=== PATIENT | male | born 1980 | race Caucasian/White ===

== ENCOUNTER 2020-03-03 04:35 | Emergency (ER) | payer BC, OTHER ==
[2020-03-03] MEDS ORDERED: Ketorolac 30 MG/ML SDV IM ONE (04:53)
[2020-03-03] MEDS ORDERED: Ketorolac 30 MG/ML SDV IVPUSH ONE (04:55)
--- NOTE | 2020-03-03 06:16 | CR ---
INDICATION: Chest pain. COMPARISON: Two-view chest March 01, 2019. TECHNIQUE: Portable AP chest. FINDINGS: Normal size cardiac silhouette. Clear lung payan with no evidence of acute pulmonic infiltrates or CHF. No pneumothorax or pleural effusion. No interval change. IMPRESSION: Negative portable AP chest. Dictated by Niranjan Reyes MD @ Mar 03 2020 6:12AM Signed by Dr. Niranjan Reyes @ Mar 03 2020 6:14AM
--- NOTE | 2020-03-03 06:23 | EDM.PDOC ---
ED HPI GENERAL MEDICAL PROBLEM - General Chief Complaint: General Stated Complaint: RT SIDE PAIN Time Seen by Provider: 03/03/20 04:42 Source of Information: Reports: Patient History Limitations: Reports: No Limitations - History of Present Illness Onset: Today, Sudden Duration: Hour(s):, Intermittent Location: Reports: Chest Quality: Reports: Sharp Severity: Moderate Improves with: Reports: None Worsens with: Reports: None Context: Reports: Other (Pain after he coughed) Associated Symptoms: Reports: No Other Symptoms, Chest Pain, Cough R side Pain Score (Numeric/FACES): 9 - Related Data Allergies Allergy/AdvReac Type Severity Reaction Status Date / Time No Known Allergies Allergy Verified 03/03/20 04:50 Home Meds: Home Meds . [No Known Home Meds] 03/03/20 [History] Past Medical History - Past Surgical History Musculoskeletal Surgical History: Reports: Other (See Below) Other Musculoskeletal Surgeries/Procedures:: knee surgery, L knee Social & Family History - Tobacco Use Smoking Status *Q: Former Smoker Used Tobacco, but Quit: Yes Month/Year Tobacco Last Used: 2019 - Recreational Drug Use Recreational Drug Use: No ED ROS GENERAL - Review of Systems Review Of Systems: See Below Constitutional: Reports: No Symptoms HEENT: Reports: No Symptoms Respiratory: Reports: Pleuritic Chest Pain, Cough Cardiovascular: Reports: No Symptoms Endocrine: Reports: No Symptoms GI/Abdominal: Reports: No Symptoms : Reports: No Symptoms Musculoskeletal: Reports: No Symptoms Skin: Reports: No Symptoms Neurological: Reports: No Symptoms Psychiatric: Reports: No Symptoms Hematologic/Lymphatic: Reports: No Symptoms Immunologic: Reports: No Symptoms ED EXAM, GENERAL - Physical Exam Exam: See Below Exam Limited By: No Limitations General Appearance: Alert, WD/WN, No Apparent Distress Eye Exam: Bilateral Eye: Normal Fundi, Normal Inspection, PERRL Ears: Normal External Exam, Normal Canal, Hearing Grossly Normal, Normal TMs Ear Exam: Bilateral Ear: Auricle Normal, Canal Normal Nose: Normal Inspection, Normal Mucosa, No Blood Throat/Mouth: Normal Inspection, Normal Lips, Normal Oropharynx, Normal Voice Head: Atraumatic, Normocephalic Respiratory/Chest: No Respiratory Distress, Lungs Clear, Normal Breath Sounds, No Accessory Muscle Use, Other (Pain to palpation in the left side of the chest) Cardiovascular: Normal Peripheral Pulses, Regular Rate, Rhythm, No Edema, No Gallop, No JVD, No Murmur GI/Abdominal: Normal Bowel Sounds, Soft, Non-Tender, No Distention, No Abnormal Bruit (Male) Exam: Deferred Rectal (Males) Exam: Deferred Back Exam: Normal Inspection, Full Range of Motion, Muscle Spasm Extremities: Normal Inspection, Normal Range of Motion Neurological: Alert, Oriented, CN II-XII Intact, Normal Cognition, Normal Reflexes, No Motor/Sensory Deficits Psychiatric: Normal Affect, Normal Mood Skin Exam: Warm, Dry, Intact, Normal Color Lymphatic: No Adenopathy Course - Vital Signs Last Recorded V/S: Last Vital Signs Temp 95.8 F L 03/03/20 04:46 Pulse 74 03/03/20 06:01 Resp 16 03/03/20 06:01 BP 125/88 03/03/20 06:01 Pulse Ox 91 L 03/03/20 06:01 - Orders/Labs/Meds Labs: Laboratory Tests 03/03/20 03/03/20 Range/Units 04:45 04:55 WBC 11.73 H (4.0-11.0) K/uL RBC 5.31 (4.50-5.90) M/uL Hgb 16.1 (13.0-17.0) g/dL Hct 47.7 (38.0-50.0) % MCV 89.8 (80.0-98.0) fL MCH 30.3 (27.0-32.0) pg MCHC 33.8 (31.0-37.0) g/dL RDW Std Deviation 41.1 (28.0-62.0) fl RDW Coeff of Maria D 13 (11.0-15.0) % Plt Count 279 (150-400) K/uL MPV 10.00 (7.40-12.00) fL Neut % (Auto) 43.1 L (48.0-80.0) % Lymph % (Auto) 38.7 (16.0-40.0) % Oliver % (Auto) 7.7 (0.0-15.0) % Eos % (Auto) 10.1 H (0.0-7.0) % Baso % (Auto) 0.4 (0.0-1.5) % Neut # (Auto) 5.1 (1.4-5.7) K/uL Lymph # (Auto) 4.5 H (0.6-2.4) K/uL Oliver # (Auto) 0.9 H (0.0-0.8) K/uL Eos # (Auto) 1.2 H (0.0-0.7) K/uL Baso # (Auto) 0.1 (0.0-0.1) K/uL Nucleated RBC % 0.0 /100WBC Nucleated RBCs # 0 K/uL Urine Color YELLOW Urine Appearance CLEAR Urine pH 6.0 (5.0-8.0) Ur Specific [place] 1.015 (1.001-1.035) Urine Protein NEGATIVE (NEGATIVE) mg/dL Urine Glucose (UA) NEGATIVE (NEGATIVE) mg/dL Urine Ketones NEGATIVE (NEGATIVE) mg/dL Urine Occult Blood NEGATIVE (NEGATIVE) Urine Nitrite NEGATIVE (NEGATIVE) Urine Bilirubin NEGATIVE (NEGATIVE) Urine Urobilinogen 0.2 (<2.0) EU/dL Ur Leukocyte Esterase NEGATIVE (NEGATIVE) Meds: Medications Discontinued Medications Generic Name Dose Route Start Last Admin Trade Name Freq PRN Reason Stop Dose Admin Ketorolac Tromethamine 30 mg 03/03/20 04:55 03/03/20 05:00 Toradol IVPUSH 03/03/20 04:56 30 mg ONETIME ONE Administration Departure - Departure Time of Disposition: 06:22 Disposition: Home, Self-Care 01 Condition: Good Clinical Impression: Muscle spasm - Discharge Information Referrals: [facility] [Primary Care Provider] - Sepsis Event Note - Evaluation Sepsis Screening Result: No Definite Risk - Focused Exam Vital Signs: Vital Signs Temp Pulse Resp BP Pulse Ox 03/03/20 06:01 74 16 125/88 91 L 03/03/20 04:46 95.8 F L 89 20 151/79 H 99 Date Exam was Performed: 03/03/20 Time Exam was Performed: 06:19
== END 2020-03-03 06:32 | disposition home or self-care (01) ==
LOC: MW.ED 04:35
DX: M62.838 Other muscle spasm (principal); M62.830 Muscle spasm of back; Z87.891 Personal history of nicotine dependence
CPT/HCPCS: 36415; 71045; 81003; 85025; 96374; 99284; J1885; 99282

== ENCOUNTER 2023-12-23 11:49 | Emergency (ER) | payer BC | END 2023-12-23 12:56 | disposition home or self-care (01) | LOC: MW.ED 11:49 | DX: L03.211 Cellulitis of face (principal); Z79.899 Other long term (current) drug therapy | CPT/HCPCS: 99283 ==

== ENCOUNTER 2023-12-24 20:05 | Emergency (ER) | payer BC ==
[2023-12-24 21:03] LABS: BASOPHILS ABSOLUTE AUTO 0.09 K/uL (0.00-0.20); BASOPHILS PERCENT AUTO 0.7 % (0.0-1.0); EOSINOPHILS ABSOLUTE AUTO 1.18 K/uL (0.00-0.45); EOSINOPHILS PERCENT AUTO 9.1 % (0.0-6.0); HEMATOCRIT 46.5 % (42.0-52.0); HEMOGLOBIN 15.6 g/dL (14.0-18.0); IMMATURE GRAN ABSOLUTE AUTO 0.03 K/uL (0.00-0.05); IMMATURE GRAN PERCENT AUTO 0.2 % (0.0-0.4); LYMPHOCYTES ABSOLUTE AUTO 3.28 K/uL (1.00-4.80); LYMPHOCYTES PERCENT AUTO 25.3 % (24.0-44.0); MEAN CORPUSCULAR HEMOGLOBIN 30.1 pg (28.0-32.0); MEAN CORPUSCULAR HGB CONC 33.5 g/dL (32.0-36.0); MEAN CORPUSCULAR VOLUME 89.6 fL (83.0-99.0); MEAN PLATELET VOLUME 9.4 fL (9.4-12.4); MONOCYTES ABSOLUTE AUTO 0.87 K/uL (0.00-0.80); MONOCYTES PERCENT AUTO 6.7 % (0.0-8.0); PLATELET COUNT,PLT 300 K/uL (150-400); RED BLOOD CELL COUNT 5.19 M/uL (4.52-5.90); WHITE BLOOD CELL COUNT,WBC 12.95 K/uL (3.9-11.3)
[2023-12-24 21:42] LABS: A/G RATIO 0.8 (0.9-1.6); ALBUMIN 3.8 g/dL (3.4-5.0); BILIRUBIN TOTAL 0.4 mg/dL (0.2-1.0); CALCIUM 9.1 mg/dL (8.5-10.1); CARBON DIOXIDE,CO2 26.6 mmol/L (21.0-32.0); CREATININE 1.2 mg/dL (0.8-1.3); EST CRCL DRUG DOSING (CG) 86.28 mL/min; POTASSIUM,K 4.4 mmol/L (3.5-5.1); PROTEIN TOTAL,TP 8.3 g/dL (6.4-8.2)
[2023-12-24] MEDS: Iopamidol 755 MG/ML 500 ML Multipack Bottle IVPUSH ONE (21:55)
[2023-12-24] MEDS: Sodium Chloride 0.9% 10 ML Syringe FLUSH PRN (22:05)
[2023-12-24] MEDS: Sodium Chloride 0.9% 2.5 ML Syringe FLUSH PRN (22:05)
== END 2023-12-24 23:35 | disposition home or self-care (01) ==
LOC: MW.ED 20:05
DX: L02.01 Cutaneous abscess of face (principal)
CPT/HCPCS: 36415; 70491; 80053; 83605; 85025; 99284; J3490; Q9967